=== PATIENT | female | born 1995 | race American Indian/Alaskan Native ===

== ENCOUNTER 2020-09-14 11:07 | Inpatient (IN) | payer OTHER ==
[2020-09-14] MEDS ORDERED: PROMETHAZINE 25 MG RECT SUPP PR PRN (12:24)
[2020-09-14] MEDS ORDERED: DINOPROSTONE 10 MG VAG SUPP VG NR (12:24)
[2020-09-14] MEDS ORDERED: ePHEDrine SULFATE 50 MG/1 ML INJ IV PRN (12:24)
[2020-09-14] MEDS ORDERED: PROMETHAZINE 25 MG TAB PO PRN (12:24)
[2020-09-14] MEDS ORDERED: LIDOCAINE (2%) 20 MG/1 ML VIAL 20 ML MDV INFILTRATI ONE (12:24)
[2020-09-14] MEDS ORDERED: BUTORPHANOL 2 MG/1 ML INJ IV PRN (12:24)
[2020-09-14] MEDS ORDERED: ACETAMINOPHEN 325 MG TAB PO PRN (12:24)
[2020-09-14] MEDS ORDERED: TERBUTALINE 1 MG/1 ML INJ SUB-Q PRN (12:24)
[2020-09-14] MEDS ORDERED: ONDANSETRON 4 MG/2 ML INJ IV PRN (12:30)
--- NOTE | 2020-09-14 12:33 | History and Physical Report ---
History of Present Illness Date of examination: 09/14/20 Date of admission: 09/14/2020 Chief complaint: elevated blood pressures and IUGR twin A with di/di twin gestation History of present illness: 25 yo G1 at 36w5d c/b h/o partial thyroidectomy in teens (nl TFTs), rubella non- immune, Hx trich dx x 2 (most recent positive 08/30/2020), di/di twin gestation, fetus A with IUGR 1%ile (24% discordance) presenting for induction of labor for elevated blood pressures with intermittent headaches and mild edema. Patient reports HAs have since resolved. Denies other current [facility] complaints. BPs 143/100 and 178/107 in clinic. Labs reviewed. Rubella Non-immune. GBS neg Past History Past Medical History: other (Hx persistent HAs since first trimester) Past Surgical History: thyroid (hx thyroidectomy) Family/Genetic History: none Social history: no significant social history - Obstetrical History Expected Date of Delivery: 10/07/20 Actual Gestation: 36 Week(s) 5 Day(s) : 1 Medications and Allergies Allergies Allergy/AdvReac Type Severity Reaction Status Date / Time No Known Allergies Allergy Unverified 10/26/14 21:39 Active Meds: Active Medications Acetaminophen (Acetaminophen 325 Mg Tab) 650 mg PO Q4H PRN PRN Reason: Pain, Mild (1-3) Butorphanol Tartrate (Butorphanol 2 Mg/1 Ml Inj) 1 mg IV Q2H PRN PRN Reason: Pain, Moderate(4-6) LABOR PAIN Butorphanol Tartrate (Butorphanol 2 Mg/1 Ml Inj) 2 mg IV Q2H PRN PRN Reason: Pain , Severe (7-10) Dinoprostone (Dinoprostone 10 Mg Vag Supp) 10 mg VG ONCE ONE Stop: 09/14/20 12:25 Ephedrine Sulfate (Ephedrine Sulfate 50 Mg/1 Ml Inj) 10 mg IV Q2M PRN PRN Reason: Hypotension Oxytocin/Sodium Chloride (Pitocin/Ns 30 Unit/500ml) 30 units in 500 mls @ 2 mls/hr IV TITR EDDY; Protocol Lactated Ringer's (Lactated Ringers) 1,000 mls @ 125 mls/hr IV DIRECT EDDY Oxytocin/Sodium Chloride (Pitocin/Ns 30 Unit/500ml) 30 units in 500 mls @ 40 mls/hr IV TITR EDDY; Protocol Lidocaine (Lidocaine (2%) 20 Mg/1 Ml Vial 20 Ml Mdv) 20 ml INFILTRATI ONCE ONE Stop: 09/14/20 12:25 Mineral Oil (Mineral Oil 30 Ml Oral Liqd) 30 ml PO QHS PRN PRN Reason: Constipation Ondansetron HCl (Ondansetron 4 Mg/2 Ml Inj) 4 mg IV Q8H PRN PRN Reason: Nausea And Vomiting Promethazine HCl (Promethazine 25 Mg Rect Supp) 25 mg IA Q6H PRN PRN Reason: N/V if unable to take po Promethazine HCl (Promethazine 25 Mg Tab) 25 mg PO Q6H PRN PRN Reason: Nausea And Vomiting Terbutaline Sulfate (Terbutaline 1 Mg/1 Ml Inj) 0.25 mg SUB-Q ONCE PRN PRN Reason: Hyperstimulation/Hypertonicity Review of Systems All systems: negative (expect HPI) - Vital Signs Vital signs: Vital Signs Pulse BP 77 165/100 09/14/20 12:14 09/14/20 12:14 Temp Pulse Resp BP Pulse Ox 77 165/100 09/14/20 12:14 09/14/20 12:14 - Physical Exam Abdomen: Positive: normal appearance, normal bowel sounds, other (gravid) Genitourinary (Female): Positive: normal external genitalia - Obstetrical FHR: category 1 Uterine Contraction Monitor Mode: External Cervical Dilatation: 2 Cervical Effacement Percentage: 60 station: -1 Uterine Contraction Pattern: Absent Results All other labs normal. Assessment and Plan - Patient Problems (1) Dichorionic diamniotic twin Current Visit: Yes Status: Acute Plan to address problem: For IOL given cephalic/cephalic presentation. IUGR for twin A, EFW 1%. --Proceed with cervidil for IOL, then pitocin per protocol --Questions solicited and answered --Anticipate , however patient understands risks associated with twin gestation including section of one or both twins as indicated (2) Elevated blood pressure affecting in third trimester, antepartum Current Visit: Yes Status: Acute Plan to address problem: --No hx of BPs issues antepartum. No elevated BPs documented in 35 weeks. --PIH labs ordered --Low threshold for preeclampsia diagnosis (3) Rubella non-immune status, antepartum Current Visit: Yes Status: Acute Plan to address problem: --MMR
[2020-09-14] MEDS ORDERED: OXYTOCIN DRIP 30 UNITS/500 ML BAG IV SCH ×2 (13:00)
[2020-09-14 13:54] LABS: Hematocrit 35.4 % (30.3-42.9); Hemoglobin 12.5 gm/dl (10.1-14.3); Mean Corpuscular HGB Conc 35 % (30-34); Mean Corpuscular Volume 90 fl (79-97); Platelet Count 198 K/mm3 (140-440); Red Blood Count 3.93 M/mm3 (3.65-5.03); Red Cell Distribution Width 14.6 % (13.2-15.2)
[2020-09-14 14:14] LABS: Alanine Aminotransferase 6 units/L (7-56); Albumin 3.2 g/dL (3.9-5); Blood Urea Nitrogen 5 mg/dL (7-17); Calcium 9.3 mg/dL (8.4-10.2); Hemolysis Index 4
[2020-09-14 14:22] LABS: BUN/Creatinine Ratio 10
[2020-09-14] MEDS: LACTATED RINGERS 1,000 ML IV SCH (14:37)
[2020-09-14] MEDS: MAGNESIUM SULFATE 40GM/1000ML 40 GM/1,000 ML BAG IV SCH (15:00)
[2020-09-14] MEDS ORDERED: MAGNESIUM SULFATE 4 GM/100 ML BAG IV ONE (15:00)
[2020-09-14 19:39] LABS: Uric Acid 6.3 mg/dL (3.5-7.6)
[2020-09-14] MEDS ORDERED: MINERAL OIL 30 ML ORAL LIQD PO PRN (22:00)
[2020-09-14] MEDS: BUTORPHANOL 2 MG/1 ML INJ IV PRN (23:29)
[2020-09-15] MEDS ORDERED: hydrALAZINE 20 MG/1 ML INJ IV ONE (00:20)
[2020-09-15] MEDS: BUTORPHANOL 2 MG/1 ML INJ IV PRN ×2 (01:31→03:27)
[2020-09-15] MEDS ORDERED: METOCLOPRAMIDE 10 MG/2 ML INJ IV ONE (04:09)
[2020-09-15] MEDS ORDERED: BICITRA ORAL LIQD 30ML PO ONE (04:09)
[2020-09-15] MEDS ORDERED: FAMOTIDINE 20 MG/2 ML INJ IV ONE (04:09)
[2020-09-15] MEDS ORDERED: LACTATED RINGERS 1,000 ML IV SCH (04:15)
--- NOTE | 2020-09-15 04:17 | Event Note ---
Date: 09/15/20 One of twins noted to have recurrent prolonged FHR decelerations on FHR tracing. Few contractions noted. Cervidil removed. BPs elevated. section called by Dr. Paul. Orders put in and team notified.
--- NOTE | 2020-09-15 04:29 | Anesthesia Day of Surgery ---
Anesthesia Day of Surgery - Day of Surgery Patient Examined: Yes Patient H&P Reviewed: Yes Patient is NPO: Yes Beta Blockers: No Cardiac Clearance: No Pulmonary Clearance: No Jeff's Test: N/A
--- NOTE | 2020-09-15 04:30 | Anesthesia Consultation ---
Anesthesia Consult and Med Hx Date of service: 09/15/20 - Airway Anesthetic Teeth Evaluation: Good ROM Head & Neck: Adequate Mental/Hyoid Distance: Adequate Mallampati Class: Class II Intubation Access Assessment: Probably Good - Pulmonary Exam CTA: Yes - Cardiac Exam Cardiac Exam: RRR - Pre-Operative Health Status ASA Pre-Surgery Classification: ASA2 Proposed Anesthetic Plan: Spinal - Pulmonary Hx Smoking: No Hx Asthma: Yes (Last attack 1 year ago) Hx Sleep Apnea: No - Cardiovascular System Hx Hypertension: Yes (Current ) Hx Heart Attack/AMI: No Hx Angina: No - Central Nervous System Hx Seizures: No Hx Psychiatric Problems: No - Gastrointestinal Hx Gastroesophageal Reflux Disease: No - Endocrine Hx Renal Disease: No Hx Hypothyroidism: No Hx Hyperthyroidism: Yes (Partial Thyroidectomy at 16 y/o) - Hematic Hx Anemia: No Hx Sickle Cell Disease: No - Other Systems Hx Alcohol Use: No
[2020-09-15] MEDS ORDERED: ONDANSETRON 4 MG/2 ML INJ ONE (04:53)
[2020-09-15] MEDS ORDERED: BUPIVACAINE /DEX-WATER 0.75% (2 ML) AMPULE INFILTRATI ONE (04:53)
[2020-09-15] MEDS ORDERED: dexAMETHasone 20 MG/5 ML VIAL ONE (05:00)
[2020-09-15] MEDS ORDERED: BUPIVACAINE/PF (0.5%) 5 MG/1 ML 30 ML VIAL INFILTRATI ONE (05:00)
[2020-09-15] MEDS ORDERED: OXYTOCIN DRIP 30 UNITS/500 ML BAG IV SCH ×2 (05:00→10:14)
[2020-09-15] MEDS ORDERED: ceFAZolin/Water 2 GM/20 ML 2 GM/20 ML SYRINGE IV NR (05:00)
[2020-09-15] MEDS ORDERED: SODIUM CHLORIDE 0.9% IRR 1,500 ML BOTTLE IR ONE (05:38)
[2020-09-15] MEDS ORDERED: WATER FOR IRRIG STERILE 1,500 ML BOTTLE IR ONE (05:38)
[2020-09-15] MEDS ORDERED: ceFAZolin/STERILE WATER 2 GM/20 ML SYRINGE IV ONE (05:38)
--- NOTE | 2020-09-15 06:12 | Progress Note ---
Spinal Anesthesia Block - Spinal Anesthesia Block Start Time: 05:00 Stop Time: 05:15 Performed by:: MANJINDER ELIZABETH Procedure: Spinal anesthesia block is being performed for [C/S]. H&P, labs have been reviewed. Patient's questions and concerns have been answered. Informed consent has been performed. Timeout has was performed. Patient in sitting position on side of bed. Sterile prep and drape was performed. 3 mL 1% lidocaine skin wheal at L [3]-L [4]. Needle introducer advanced. 25-gauge spinal needle advanced, [+] CSF [-] blood. [Marcaine 10.5mg and Precedex 5mcg] Spinal dose was given. All needles removed. Patient tolerated procedure well.
[2020-09-15] MEDS ORDERED: LACTATED RINGERS 1,000 ML ONE (06:42)
--- NOTE | 2020-09-15 07:11 | Procedure Note ---
OB Delivery Note - Delivery Date of Delivery: 09/15/20 Surgeon: CAMILLE DENNIS Estimated blood loss: 300cc - Section Preop diagnosis: nonreassuring FHR tracing, other (IUP at 36.5wks, severe preeclampsia, twin gestation) Postop diagnosis: same section procedure: primary low transverse Disposition: floor Complications: none Narrative: Primary section note Date: September 15, 2020 Surgeon: Camille Dennis MD Asst: Camille Gimenez Preoperative diagnosis: Intrauterine with twin gestation at 36.5 weeks, severe preeclampsia, category 3 heart rate tracing remote from delivery Postoperative diagnosis: same Anesthesia: spinal Intake: 1000 cc crystalloids Output: 400 cc clear urine at the end of the procedure Estimated blood loss: 300 cc Findings: Twin A, vertex presentation, clear amniotic fluid, weight 2200 g, Apgars 8/9. Twin B, vertex presentation, clear amniotic fluid, weight 1801 g, Apgars 8/9. Normal uterus tubes and ovaries placenta appears mono dichorionic and sent to pathology. Pathology: Placenta Procedure: After the risks benefits and alternatives of the procedure, patient was taken to the operating room already lying in labor and delivery bed. Consents obtained and patient already with Vaughn catheter draining clear urine. Patient was given spinal anesthesia and when seen was adequate patient was placed supine. Patient was prepped and draped in usual sterile fashion. Patient was given antibiotic prophylaxis and timeout done. Pfannenstiel skin incision was made and taken sharply to the rectus fascia. The fascia was incised in the midline and taken sharply and extended bilaterally using electrocautery. The lower abdomen was very added edematous. Superior aspect of the rectus fascia was grasped with Gaviota clamps and the rectus muscle both bluntly and also with electrocautery the rectus muscle was then in the midline and the peritoneal cavity entered bluntly with good visualization of the bladder. The Sanchez retractor was then placed within the intra-abdominal cavity and the bladder flap was created using Metzenbaum scissors lower uterine segment was then entered sharply and extended bilaterally by manual separation. The amniotic sac of twin A was then entered and twin A delivered vertex uncomplicated cord clamp and infant handed off to the waiting pediatricians. Attention was turned to twin B which was also in vertex presentation the amniotic sac was entered and clear fluid was also noted. was delivered cord clamped suctioned and handed off to the waiting pediatricians. The placenta was then delivered with the single clamp placed on twin B cord. The uterus was then cleared of clots and debris and the incision was repaired with 2 layers. First layer with 0 Vicryl running locked suture and the second layer for imbrication with the same suture. Excellent hemostasis achieved gutters were cleared of clots and debris and the anterior peritoneum was closed with 3-0 Vicryl in a running locked fashion the rectus muscles then reapproximated with 0 Vicryl in a running fashion the fascia was reapproximated from left side towards the right in a continuous fashion using 0 Vicryl suture copious irrigation was done to subcutaneous tissue and skin was reapproximated with 3-0 Vicryl suture skin was closed with 3-0 Monocryl subcutaneously sponge lap instrument and needle counts were correct x2. Patient was taken to recovery room stable. Dictation done by Dr. Camille Dennis. - A at 1 minute: 8 at 5 minutes: 9 B at 1 minute: 8 at 5 minutes: 9 (Twin A vertex, wt 2200g; Twin B vertex, wt 1801g; clear amniotic fluid in both sacs, normal uterus tubes and ovaries; placenta complete)
--- NOTE | 2020-09-15 07:33 | Progress Note ---
Regional Anesthesia Block - Regional Anesthesia Block Start Time: 19:00 Stop Time: 19:10 Performed By:: JULIO RIVAS Procedure: U/S guided bilateral tap block performed for post-operative pain requested by Dr. Paul. H&P & labs reviewed. Procedure explained, questions answered, consent obtained. Patient in the supine position with ekg, blood pressure cuff and pulse ox on and working in PACU. Timeout performed immediately before start of procedure. Probe placed in the mid-axillary line and the external oblique, internal oblique, and transverse abdominus muscles identified. Skin was cleansed with 0.5% Chlorahexadine and allowed to dry. A 4" 20 G Nino echogenic needle was advanced in plane until the tip was in the fascial plane between the internal oblique and the transverse abdominus. After negative aspiration 35 ml/side of [30 ml 0.5% Bupivacaine], [50 mcg dexmedetomidine], [10 mg dexamethasone], and [40 ml sterile saline] was injected in 5 ml increments with negative aspiration in between. Patient tolerated procedure well. Rich LITTLE
--- NOTE | 2020-09-15 07:34 | Post Anesthesia Evaluation ---
- Post Anesthesia Evaluation Patient Participated: Yes Airway Patent: Yes Stable Respiratory Function: Yes Nausea/Vomiting: No Temp > 96.8F: Yes Pain Manageable: Yes Adequeate Hydration: Yes Anesthesia Complications: No Block Receding Appropriately: Yes
[2020-09-15] MEDS ORDERED: WITCH HAZEL/ GLYCERIN PAD TP PRN (10:14)
[2020-09-15] MEDS ORDERED: NALOXONE 0.4 MG/1 ML INJ IV PRN (10:14)
[2020-09-15] MEDS ORDERED: SIMETHICONE 80 MG CHEW TAB PO PRN (10:14)
[2020-09-15] MEDS ORDERED: ONDANSETRON 4 MG/2 ML INJ IV PRN (10:14)
[2020-09-15] MEDS ORDERED: PROMETHAZINE 25 MG RECT SUPP PR PRN (10:14)
[2020-09-15] MEDS ORDERED: ceFAZolin/NS 1 GM/50 ML 1 GM/50 ML BAG IV SCH (10:14)
[2020-09-15] MEDS ORDERED: oxyCODONE /ACETAMINOPHEN 5-325MG TAB PO PRN (10:14)
[2020-09-15] MEDS ORDERED: MAGNESIUM HYDROXIDE (MOM) ORAL LIQD UDC PO PRN (10:14)
[2020-09-15] MEDS ORDERED: LANOLIN/ZINC/DIMETHICONE (LANSINOH) 7 GM TP PRN (10:14)
[2020-09-15] MEDS: MORPHINE 2 MG/1 ML INJ IV PRN ×3 (10:34→21:38)
[2020-09-15] MEDS: hydrALAZINE 20 MG/1 ML INJ IV PRN ×3 (11:46→18:14)
[2020-09-15] MEDS: MAGNESIUM SULFATE 40GM/1000ML 40 GM/1,000 ML BAG IV SCH (11:51)
[2020-09-15] MEDS: oxyCODONE /ACETAMINOPHEN 5-325MG TAB PO PRN (18:00)
[2020-09-15] MEDS: LACTATED RINGERS 1,000 ML IV SCH (18:07)
[2020-09-15 19:14] LABS: Basophils % (Auto) 0.1 % (0.0-1.8); Hematocrit 39.7 % (30.3-42.9); Hemoglobin 13.4 gm/dl (10.1-14.3); Lymphocytes # (Auto) 1.5 K/mm3 (1.2-5.4); Lymphocytes % (Auto) 7.5 % (13.4-35.0); Mean Corpuscular HGB Conc 34 % (30-34); Mean Corpuscular Volume 91 fl (79-97); Monocytes # (Auto) 0.5 K/mm3 (0.0-0.8); Monocytes % (Auto) 2.6 % (0.0-7.3); Platelet Count 201 K/mm3 (140-440); Red Blood Count 4.34 M/mm3 (3.65-5.03); Red Cell Distribution Width 15.3 % (13.2-15.2)
[2020-09-15 19:27] LABS: Alanine Aminotransferase 8 units/L (7-56); Albumin 3.1 g/dL (3.9-5); Blood Urea Nitrogen 5 mg/dL (7-17); Calcium 8.1 mg/dL (8.4-10.2); Hemolysis Index 2
[2020-09-15 19:28] LABS: Uric Acid 7.5 mg/dL (3.5-7.6)
[2020-09-15 19:34] LABS: BUN/Creatinine Ratio 8
[2020-09-16] MEDS ORDERED: ceFAZolin/NS 1 GM/50 ML 1 GM/50 ML BAG IV SCH
[2020-09-16] MEDS: MORPHINE 2 MG/1 ML INJ IV PRN (05:27)
[2020-09-16] MEDS: LACTATED RINGERS 1,000 ML IV SCH (07:16)
--- NOTE | 2020-09-16 08:18 | Progress Note ---
Assessment and Plan A: /postop day 1 S/P primary LTCS for twins, severe PreE, and nonreassuring FHR tracing. Preeclampsia with severe features, S/P magnesium sulfate. BPs labile, on Labetalol, just added Norvasc. P: Monitor BPs. Urinalysis (not collected last PM), urine culture. Advance diet as tolerated. Consulted with re: this patient. Subjective - Subjective Date of service: 09/16/20 Principal diagnosis: /postop day 1 S/P primary LTCS Interval history: /postop day 1 S/P primary LTCS (twins, severe preeclampsia, nonreassuring FHR tracing). BPs labile. On Labetalol 300 mg po BID; just added Norvasc 5 mg po daily per MD recommendation. Patient denies headache, visual disturbance, nausea or vomiting, epigastric pain. Has mild generalized edema. Magnesium sulfate was just discontinued this AM due to > 24 hours post delivery. Patient reports: appetite normal, pain well controlled, bowel movement, no nauseated : doing well Objective - Vital Signs Latest vital signs: Vital Signs Temp Pulse Resp BP BP Pulse Ox 09/16/20 08:07 85 98 09/16/20 08:02 80 98 09/16/20 07:53 80 99 09/16/20 07:48 79 98 09/16/20 07:43 82 98 09/16/20 07:42 80 156/99 09/16/20 07:38 78 97 09/16/20 07:36 98.8 F 80 18 156/99 98 09/16/20 07:33 80 97 09/16/20 07:29 74 168/103 93 09/16/20 07:28 79 97 09/16/20 07:23 77 96 09/16/20 07:18 79 97 09/16/20 07:13 82 97 09/16/20 07:08 77 96 09/16/20 07:03 76 98 09/16/20 06:59 74 163/98 09/16/20 06:58 82 98 09/16/20 06:53 80 97 09/16/20 06:48 77 96 09/16/20 06:43 78 96 09/16/20 06:38 75 146/91 96 09/16/20 06:33 82 96 09/16/20 06:29 80 163/108 12/20/20 06:28 81 98 12/20/20 06:23 77 98 12/20/20 06:18 79 96 12/20/20 06:13 78 98 12/20/20 06:08 79 98 12/20/20 06:03 79 97 12/20/20 05:59 80 139/94 93 12/20/20 05:58 84 97 12/20/20 05:53 86 98 12/20/20 05:48 79 98 12/20/20 05:45 98.1 F 12/20/20 05:43 75 98 12/20/20 05:38 87 98 12/20/20 05:33 82 139/87 99 12/20/20 05:29 82 153/95 94 12/20/20 05:28 83 98 12/20/20 05:23 77 98 12/20/20 05:18 83 97 12/20/20 05:13 80 95 12/20/20 05:10 84 94 12/20/20 05:08 81 95 12/20/20 05:03 81 96 12/20/20 04:59 83 120/75 92 12/20/20 04:58 81 95 12/20/20 04:53 80 95 12/20/20 04:48 79 96 12/20/20 04:44 81 94 12/20/20 04:43 82 95 12/20/20 04:38 79 96 12/20/20 04:35 88 94 12/20/20 04:33 78 95 12/20/20 04:29 77 129/76 92 12/20/20 04:28 79 95 12/20/20 04:23 81 96 12/20/20 04:18 81 95 12/20/20 04:16 79 94 12/20/20 04:13 81 96 12/20/20 04:08 93 H 94 12/20/20 04:04 83 94 12/20/20 04:03 84 95 12/20/20 03:59 79 125/74 94 12/20/20 03:58 81 95 12/20/20 03:53 82 95 12/20/20 03:48 83 95 12/20/20 03:43 81 96 12/20/20 03:38 77 98 12/20/20 03:33 76 96 12/20/20 03:29 77 134/84 91 12/20/20 03:28 81 96 12/20/20 03:23 79 95 12/20/20 03:21 81 94 12/20/20 03:18 80 95 12/20/20 03:16 83 94 12/20/20 03:13 82 95 12/20/20 03:08 83 95 12/20/20 03:07 84 94 12/20/20 03:03 80 96 12/20/20 02:59 76 139/85 93 12/20/20 02:58 81 97 12/20/20 02:53 79 96 12/20/20 02:48 83 95 12/20/20 02:47 83 94 12/20/20 02:43 81 96 12/20/20 02:38 83 94 12/20/20 02:37 83 94 12/20/20 02:33 84 95 12/20/20 02:29 81 144/83 92 12/20/20 02:28 85 96 12/20/20 02:23 87 96 12/20/20 02:18 79 96 12/20/20 02:13 85 95 12/20/20 02:10 84 94 12/20/20 02:08 84 95 12/20/20 02:03 79 97 12/20/20 01:59 78 126/77 12/20/20 01:58 88 95 12/20/20 01:56 84 94 12/20/20 01:53 84 95 12/20/20 01:48 82 96 12/20/20 01:43 85 95 12/20/20 01:38 84 95 12/20/20 01:33 83 96 12/20/20 01:29 83 144/88 92 12/20/20 01:28 84 97 12/20/20 01:23 84 97 12/20/20 01:18 91 H 95 12/20/20 01:13 83 96 12/20/20 01:08 89 97 12/20/20 01:03 85 96 12/20/20 00:59 83 133/81 91 12/20/20 00:58 85 96 12/20/20 00:53 84 97 12/20/20 00:48 85 96 12/20/20 00:43 85 96 12/20/20 00:38 83 96 12/20/20 00:33 83 96 12/20/20 00:29 81 139/85 89 12/20/20 00:28 82 96 12/20/20 00:23 83 96 12/20/20 00:18 86 95 12/20/20 00:15 86 94 12/20/20 00:13 88 95 12/20/20 00:08 84 96 12/20/20 00:05 86 94 12/20/20 00:03 84 95 12/19/20 23:59 83 122/75 91 12/19/20 23:58 88 95 12/19/20 23:53 82 96 12/19/20 23:48 82 96 12/19/20 23:43 82 95 12/19/20 23:41 97.8 F 12/19/20 23:38 84 96 12/19/20 23:33 85 95 12/19/20 23:29 84 136/90 91 12/19/20 23:28 84 97 12/19/20 23:23 87 97 12/19/20 23:18 87 97 1219/20 23:13 91 H 97 1219/20 23:08 87 97 12/19/20 23:03 83 96 12/19/20 22:59 81 139/85 89 12/19/20 22:58 83 97 12/19/20 22:53 84 96 12/19/20 22:48 84 97 12/19/20 22:43 85 97 12/19/20 22:39 87 145/88 91 12/19/20 22:38 85 97 12/19/20 22:33 86 98 12/19/20 22:29 83 159/91 93 12/19/20 22:28 81 97 12/19/20 22:23 83 97 12/19/20 22:18 86 96 12/19/20 22:13 86 98 12/19/20 22:08 92 H 96 12/19/20 22:03 89 97 12/19/20 21:59 86 169/101 94 12/19/20 21:58 87 97 12/19/20 21:53 82 97 12/19/20 21:48 92 H 96 12/19/20 21:43 86 97 12/19/20 21:38 87 98 12/19/20 21:33 88 98 12/19/20 21:29 88 135/91 12/19/20 21:28 89 97 12/19/20 21:23 89 97 12/19/20 21:18 88 98 12/19/20 21:13 88 98 12/19/20 21:08 92 H 98 12/19/20 21:03 83 98 12/19/20 20:59 86 145/91 89 12/19/20 20:58 89 97 12/19/20 20:53 82 98 12/19/20 20:48 91 H 97 12/19/20 20:43 90 97 12/19/20 20:38 89 97 12/19/20 20:33 83 96 12/19/20 20:29 89 134/82 91 12/19/20 20:28 85 97 12/19/20 20:23 86 96 12/19/20 20:18 89 97 12/19/20 20:13 88 95 12/19/20 20:08 84 96 12/19/20 20:03 91 H 97 12/19/20 19:59 85 137/92 92 12/19/20 19:58 84 97 12/19/20 19:53 85 97 12/19/20 19:48 85 96 12/19/20 19:43 88 97 12/19/20 19:38 94 H 97 12/19/20 19:33 88 96 12/19/20 19:29 88 126/79 94 12/19/20 19:28 85 96 12/19/20 19:23 90 97 12/19/20 19:18 89 97 12/19/20 19:13 92 H 95 12/19/20 19:12 98.1 F 93 H 17 134/81 134/81 95 12/19/20 19:08 97 H 96 12/19/20 19:06 97 H 94 12/19/20 19:03 94 H 95 12/19/20 18:59 96 H 143/95 12/19/20 18:58 97 H 94 12/19/20 18:53 94 H 97 12/19/20 18:48 93 H 97 12/19/20 18:43 92 H 95 12/19/20 18:38 102 H 95 12/19/20 18:37 102 H 94 12/19/20 18:33 102 H 93 12/19/20 18:31 95 H 141/94 12/19/20 18:29 99 H 154/101 94 12/19/20 18:28 92 H 95 1219/20 18:24 95 H 173/106 1219/20 18:23 93 H 93 19/20 18:18 87 93 19/20 18:17 86 94 19/20 18:14 179/110 1219/20 18:13 91 H 93 19/20 18:08 88 95 19/20 18:07 88 94 19/20 18:03 83 94 19/20 17:59 91 H 179/110 85 19/20 17:58 90 96 19/20 17:53 95 H 95 19/20 17:51 83 92 19/20 17:48 86 97 19/20 17:43 95 H 95 19/20 17:38 92 H 158/95 93 19/20 17:33 91 H 96 19/20 17:29 85 164/104 84 19/20 17:28 88 95 19/20 17:23 88 96 19/20 17:20 91 H 92 19/20 17:18 94 H 93 19/20 17:13 90 95 19/20 17:12 86 94 19/20 17:08 89 95 19/20 17:06 90 94 19/20 17:03 88 98 19/20 16:59 98.4 F 83 14 140/95 1219/20 16:58 83 140/95 95 19/20 16:53 86 96 19/20 16:52 89 94 1219/20 16:48 90 96 1219/20 16:43 95 H 94 1219/20 16:38 88 95 1219/20 16:35 91 H 94 1219/20 16:33 88 96 1219/20 16:29 91 H 141/97 89 1219/20 16:28 90 99 1219/20 16:23 88 97 1219/20 16:19 94 H 94 19/20 16:18 90 95 19/20 16:13 92 H 97 19/20 16:08 90 98 19/20 16:03 92 H 95 19/20 15:59 96 H 132/78 1219/20 15:58 93 H 95 19/20 15:55 95 H 94 1219/20 15:53 93 H 96 19/20 15:48 76 96 19/20 15:43 92 H 95 19/20 15:40 90 94 1219/20 15:38 89 96 19/20 15:33 92 H 96 1219/20 15:29 89 154/101 1219/20 15:28 93 H 95 19/20 15:23 93 H 96 19/20 15:19 92 H 94 19/20 15:18 95 H 93 09/15/20 15:13 96 H 93 09/15/20 15:12 95 H 94 09/15/20 15:08 93 H 95 09/15/20 15:03 92 H 97 09/15/20 14:59 92 H 135/93 91 09/15/20 14:58 94 H 96 09/15/20 14:53 93 H 95 09/15/20 14:48 95 H 96 19/20 14:45 97 H 94 09/15/20 14:43 95 H 95 19/20 14:39 99 H 94 09/15/20 14:38 98 H 94 09/15/20 14:34 94 H 93 09/15/20 14:33 94 H 95 09/15/20 14:29 91 H 136/85 19/20 14:28 92 H 95 09/15/20 14:26 94 H 94 09/15/20 14:23 95 H 95 09/15/20 14:18 94 H 96 19/20 14:13 91 H 95 19/20 14:09 94 H 94 19/20 14:08 92 H 95 09/15/20 14:03 92 H 96 19/20 13:59 86 139/86 92 1219/20 13:58 89 96 1219/20 13:53 88 97 1219/20 13:49 165/100 1219/20 13:48 82 96 1219/20 13:43 81 96 1219/20 13:38 83 97 1219/20 13:33 85 97 1219/20 13:29 89 165/100 88 12/19/20 13:28 92 H 95 12/19/20 13:23 89 96 12/19/20 13:18 83 98 12/19/20 13:13 82 97 12/19/20 13:08 88 98 12/19/20 13:03 94 H 99 1219/20 12:59 86 147/91 93 12/19/20 12:58 89 95 1219/20 12:53 89 95 1219/20 12:48 88 96 1219/20 12:43 90 95 1219/20 12:38 85 96 1219/20 12:33 86 96 1219/20 12:29 90 137/91 1219/20 12:28 90 100 1219/20 12:23 84 97 1219/20 12:18 101 H 97 1219/20 12:13 84 99 12/20 12:08 99 H 98 1219/20 12:03 89 97 1219/20 11:59 90 135/91 92 1219/20 11:58 89 96 12/19/20 11:53 87 96 12/19/20 11:48 89 95 12/19/20 11:46 181/103 12/19/20 11:43 86 96 12/19/20 11:38 81 95 12/19/20 11:33 77 95 12/19/20 11:29 75 181/103 93 12/19/20 11:28 77 97 12/19/20 11:23 90 97 12/19/20 11:22 80 93 12/19/20 11:18 76 97 12/19/20 11:13 85 98 12/19/20 11:08 77 96 12/19/20 11:03 78 95 12/19/20 10:59 75 171/103 91 12/19/20 10:58 76 96 12/19/20 10:53 88 98 12/19/20 10:48 79 95 12/19/20 10:43 73 96 12/19/20 10:38 82 97 12/19/20 10:33 74 179/91 97 12/19/20 10:30 77 217/97 12/19/20 10:29 85 94 12/19/20 10:28 78 99 12/19/20 10:23 76 98 12/19/20 10:18 79 98 09/15/20 10:13 85 98 09/15/20 10:08 85 95 09/15/20 10:03 82 95 09/15/20 10:02 85 94 09/15/20 09:58 78 95 09/15/20 09:56 83 94 09/15/20 09:53 82 94 09/15/20 09:50 87 94 09/15/20 09:48 87 150/88 93 09/15/20 09:45 83 94 09/15/20 09:43 80 95 09/15/20 09:38 83 95 09/15/20 09:36 85 94 09/15/20 09:33 81 156/89 95 09/15/20 09:28 79 94 09/15/20 09:23 87 94 09/15/20 09:20 81 94 09/15/20 09:18 79 174/99 95 09/15/20 09:15 80 94 09/15/20 09:13 85 94 09/15/20 09:09 79 94 09/15/20 09:08 84 95 09/15/20 09:04 82 94 09/15/20 09:03 81 179/101 94 09/15/20 08:58 86 95 09/15/20 08:57 82 94 09/15/20 08:53 81 95 09/15/20 08:48 78 204/115 97 09/15/20 08:43 86 98 09/15/20 08:41 91 H 92 09/15/20 08:38 81 97 09/15/20 08:33 83 168/104 95 09/15/20 08:28 88 97 09/15/20 08:23 87 97 09/15/20 08:19 84 94 09/15/20 08:18 83 192/119 98 Intake and Output 09/15/2009/16/09/16/20 23:59 07:59 15:59 Intake Total 986.25 Output Total 1924 625 Balance -1924 361.25 Intake: IV 986.25 Lactated Ringers 1,000 ml 986.25 @ 125 mls/hr IV DIRECT EDDY Rx#:[id number] Output: Urine 1924 625 Indwelling Catheter 1924 625 Other: Total, Output Amount 250 350 - Exam Cardiovascular: Present: Regular rate Lungs: Present: Clear to auscultation Abdomen: Present: normal appearance, soft, normal bowel sounds. Absent: distention, tenderness, guarding Uterus: Present: normal, firm, fundal height below umbilicus. Absent: bogginess, tenderness Extremities: Present: edema. Absent: tenderness Incision: Present: normal, dry, dressed - Labs Labs: Abnormal lab results 09/15/20 09/15/20 09/15/20 Range/Units 09:05 16:34 18:27 WBC 19.4 H (4.5-11.0) K/mm3 RDW 15.3 H (13.2-15.2) % Lymph % (Auto) 7.5 L (13.4-35.0) % Seg Neutrophils % 89.8 H (40.0-70.0) % Seg Neutrophils # 17.4 H (1.8-7.7) K/mm3 Sodium (137-145) mmol/L BUN (7-17) mg/dL Glucose (65-100) mg/dL Calcium (8.4-10.2) mg/dL Magnesium 5.30 H 6.50 H (1.7-2.3) mg/dL Lactate Dehydrogenase (91-180) units/L Albumin (3.9-5) g/dL 09/15/20 09/15/20 09/15/20 Range/Units 18:27 18:27 23:09 WBC (4.5-11.0) K/mm3 RDW (13.2-15.2) % Lymph % (Auto) (13.4-35.0) % Seg Neutrophils % (40.0-70.0) % Seg Neutrophils # (1.8-7.7) K/mm3 Sodium 136 L (137-145) mmol/L BUN 5 L (7-17) mg/dL Glucose 135 H (65-100) mg/dL Calcium 8.1 L (8.4-10.2) mg/dL Magnesium 6.60 H (1.7-2.3) mg/dL Lactate Dehydrogenase 338 H (91-180) units/L Albumin 3.1 L (3.9-5) g/dL
[2020-09-16] MEDS: amLODIPine 5 MG TAB PO SCH ×2 (08:56→13:45)
[2020-09-16] MEDS: oxyCODONE /ACETAMINOPHEN 5-325MG TAB PO PRN ×2 (09:19→18:01)
[2020-09-16 09:29] LABS: Hematocrit 37.1 % (30.3-42.9); Hemoglobin 12.3 gm/dl (10.1-14.3)
--- NOTE | 2020-09-16 09:51 | Event Note ---
Date: 09/16/20 Hospitalist medical consult ordered for uncontrolled BPs on Labetalol and Norvasc.
[2020-09-16] MEDS: PRENATAL VIT27-FE FUMARATE-FOLIC ACID VIT TAB PO SCH (10:05)
[2020-09-16] MEDS: FERROUS SULFATE 325 MG TAB PO SCH (10:05)
--- NOTE | 2020-09-16 11:42 | History and Physical Report ---
History of Present Illness Date of examination: 09/16/20 Date of admission: 09/14/20 12:24 Chief complaint: Elevated blood pressure. History of present illness: Patient 25 years old 36 weeks 5 days with history of partial thyroidectomy presents after induction with hypertension. Patient's blood pressure was high as 170/106. Patient has been essentially asymptomatic except for some lower extremity edema. Patient stated blood pressure began after visit to her BACK TENDER in which she noticed it was high patient was brought here for labor induction. Blood pressure was found to have systolic in the 170s. Patient denies any headache denies chest pain no shortness of breath no dyspnea on exertion patient denies orthopnea denies PND. Has done well. Patient was currently placed on labetalol with as needed hydralazine and amlodipine and actually has gotten fairly good response from above medications. Current blood pressure 138/70. Patient explained the risk of preeclampsia. No evidence of this at this particular time on physical or laboratory values. Patient denies headache denies fever chills no sick contacts. Past History Past Medical History: denies: atrial fib, anemia, ESRD, GERD, liver disease, migraines, pulmonary embolism, seizures Past Surgical History: No surgical history Social history: no significant social history. denies: smoking Family history: hypertension (Mother has hypertension) Medications and Allergies Allergies Allergy/AdvReac Type Severity Reaction Status Date / Time No Known Allergies Allergy Unverified 10/26/14 21:39 Home Medications Medication Instructions Recorded Confirmed Last Taken Type Vitamin 1 tab PO DAILY 09/14/20 09/14/20 09/14/20 History oxyCODONE /ACETAMINOPHEN [Percocet 1 tab PO Q6H PRN #30 tablet 09/15/20 Unknown Rx 5/325 mg] Active Meds: Active Medications Amlodipine Besylate (Amlodipine 5 Mg Tab) 5 mg PO QDAY [facility] Last Admin: 09/16/20 08:56 Dose: 5 mg Documented by: Amoxicillin/Clavulanate Potassium (Amoxicillin/K Clav 875/125mg Tab) 1 each PO Q12HR [facility]; Protocol Stop: 09/22/20 23:59 Ferrous Sulfate (Ferrous Sulfate 325 Mg Tab) 325 mg PO QDAY [facility] Last Admin: 09/16/20 10:05 Dose: 325 mg Documented by: Hydralazine HCl (Hydralazine 20 Mg/1 Ml Inj) 5 mg IV Q30MIN PRN PRN Reason: Hypertension Last Admin: 09/15/20 18:14 Dose: 5 mg Documented by: Oxytocin/Sodium Chloride (Pitocin/Ns 30 Unit/500ml) 30 units in 500 mls @ 2 mls/hr IV TITR EDDY; Protocol Lactated Ringer's (Lactated Ringers) 1,000 mls @ 125 mls/hr IV DIRECT EDDY Last Admin: 09/16/20 07:16 Dose: 75 mls/hr Documented by: Oxytocin/Sodium Chloride (Pitocin/Ns 30 Unit/500ml) 30 units in 500 mls @ 40 mls/hr IV TITR EDDY; Protocol Oxytocin/Sodium Chloride (Pitocin/Ns 30 Unit/500ml) 30 units in 500 mls @ 0 mls/hr IV TITR EDDY; Protocol Oxytocin/Sodium Chloride (Pitocin/Ns 30 Unit/500ml) 30 units in 500 mls @ 40 mls/hr IV TITR EDDY; Protocol Ibuprofen (Ibuprofen 800 Mg Tab) 800 mg PO Q6H PRN PRN Reason: Pain, Mild (1-3) Labetalol HCl (Labetalol 100 Mg Tab) 300 mg PO BID [facility] Last Admin: 09/16/20 10:04 Dose: 300 mg Documented by: Magnesium Hydroxide (Magnesium Hydroxide (Mom) Oral Liqd Udc) 30 ml PO QHS PRN PRN Reason: Constip Unrelieved By Senna Morphine Sulfate (Morphine 2 Mg/1 Ml Inj) 2 mg IV Q3H PRN PRN Reason: Pain, Moderate (4-6) Last Admin: 09/16/20 05:27 Dose: 2 mg Documented by: Multi-Ingredient Ointment (Lanolin/Zinc/Dimethicone (Lansinoh) 7 Gm) 1 applic TP PRN PRN PRN Reason: dryness/cracking Multivitamins/Iron/Calcium ( [id number] Fumarate-Folic Acid Vit Tab) 1 each PO QDAY [facility] Last Admin: 09/16/20 10:05 Dose: 1 each Documented by: Naloxone HCl (Naloxone 0.4 Mg/1 Ml Inj) 0.1 mg IV Q2MIN PRN PRN Reason: Res Rate </= 8 or 02 SAT < 92% Ondansetron HCl (Ondansetron 4 Mg/2 Ml Inj) 4 mg IV Q8H PRN PRN Reason: Nausea And Vomiting Ondansetron HCl (Ondansetron 4 Mg/2 Ml Inj) 4 mg IV Q8H PRN PRN Reason: Nausea And Vomiting Oxycodone/Acetaminophen (Oxycodone /Acetaminophen 5-325mg Tab) 2 tab PO Q6H PRN PRN Reason: Pain, Moderate (4-6) Last Admin: 09/16/20 09:19 Dose: 2 tab Documented by: Simethicone (Simethicone 80 Mg Chew Tab) 80 mg PO Q6H PRN PRN Reason: Gas pain Sodium Chloride (Sodium Chloride 0.9% 10 Ml Flush Syringe) 10 ml IV PRN NR Stop: 09/22/20 10:13 Witch Deborah/Glycerin (Witch Deborah/ Glycerin Pad) 1 each TP PRN PRN PRN Reason: Hemorrhoids/cleansing/soothing Review of Systems Constitutional: no weight loss, no weight gain, no fever, no anorexia, no fatigue, no poor appetite, no daytime sleepiness, no chronic pain Ears, nose, mouth and throat: no decreased hearing, no nasal discharge, no mouth pain, no dysphagia Cardiovascular: no orthopnea, no syncope, no claudication, no phlebitis Respiratory: no excessive sputum Gastrointestinal: no nausea, no change in bowel habits, no hematemesis, no dyspepsia/bloating, no early satiety Genitourinary Female: no urinary frequency, no stress incontinence Menstruation: premenarcheal, ammenorrhea, period heavy Musculoskeletal: no neck pain, no arm numbness/tingling, no shooting leg pain, no muscle weakness, no muscle cramps, no frequent falls, no arthritis Integumentary: no rash, no darkening of skin, no depigmentation, no foot/leg ulcers Neurological: no paralysis, no parathesias, no convulsions, no aphasia, no double vision, no loss of vision Psychiatric: no hypersomnia, no disorientation Endocrine: no polyphagia, no polydipsia, no nocturia, no deepening of the voice, no high blood sugars, no recent glucocorticoid use Hematologic/Lymphatic: no other Allergic/Immunologic: no allergic rhinitis, no angioedema, no gluten intolerance, no seasonal allergies Exam - Constitutional Vitals: Temp Pulse Resp BP Pulse Ox 98.8 F 81 18 127/82 97 09/16/20 07:36 09/16/20 11:32 09/16/20 07:36 09/16/20 11:06 09/16/20 11:32 General appearance: Present: no acute distress, well-nourished - EENT Eyes: Present: PERRL ENT: hearing intact, clear oral mucosa - Neck Neck: Present: supple, normal ROM - Respiratory Respiratory effort: normal Respiratory: bilateral: CTA - Cardiovascular Heart Sounds: Present: S1 & S2. Absent: rub, click - Extremities Extremities: pulses symmetrical, No edema Extremity abnormal: edema (Consistent with edema) Peripheral Pulses: within normal limits - Abdominal General gastrointestinal: Present: soft, non-tender, non-distended, normal bowel sounds, other (Consistent with .) Female genitourinary: Present: normal - Integumentary Integumentary: Present: clear, warm, dry - Musculoskeletal Musculoskeletal: gait normal, strength equal bilaterally - Psychiatric Psychiatric: appropriate mood/affect, intact judgment & insight - Neurologic Neurologic: CNII-XII intact, moves all extremities Results - Labs CBC & Chem 7: 09/16/20 08:17 09/15/20 18:27 Labs: Abnormal lab results 09/15/20 09/15/20 09/15/20 Range/Units 16:34 18:27 18:27 WBC 19.4 H (4.5-11.0) K/mm3 RDW 15.3 H (13.2-15.2) % Lymph % (Auto) 7.5 L (13.4-35.0) % Seg Neutrophils % 89.8 H (40.0-70.0) % Seg Neutrophils # 17.4 H (1.8-7.7) K/mm3 Sodium 136 L (137-145) mmol/L BUN 5 L (7-17) mg/dL Glucose 135 H (65-100) mg/dL Calcium 8.1 L (8.4-10.2) mg/dL Magnesium 6.50 H (1.7-2.3) mg/dL Lactate Dehydrogenase (91-180) units/L Albumin 3.1 L (3.9-5) g/dL 09/15/20 09/15/20 Range/Units 18:27 23:09 WBC (4.5-11.0) K/mm3 RDW (13.2-15.2) % Lymph % (Auto) (13.4-35.0) % Seg Neutrophils % (40.0-70.0) % Seg Neutrophils # (1.8-7.7) K/mm3 Sodium (137-145) mmol/L BUN (7-17) mg/dL Glucose (65-100) mg/dL Calcium (8.4-10.2) mg/dL Magnesium 6.60 H (1.7-2.3) mg/dL Lactate Dehydrogenase 338 H (91-180) units/L Albumin (3.9-5) g/dL Assessment and Plan - Patient Problems (1) Dichorionic diamniotic twin Current Visit: Yes Status: Acute Plan to address problem: induction as ordered by BACK TENDER. Doing well. (2) Elevated blood pressure affecting in third trimester, antepartum Current Visit: Yes Status: Acute Plan to address problem: Patient elevated blood pressure actually current regime fairly well controlled on labetalol 300 mg twice daily and amlodipine 5 mg daily with as needed hydralazine. We will continue present dosing. Discussed with nurse certified midwife. Patient current blood pressure 130/78 we will not adjust medications at this time. Patient does not fact have significant space to titrate up on both medications. For now we will leave just the same reevaluate in a.m. Patient denies any chest pain. Patient not have any evidence of preeclampsia. Very low risk. Normal renal function normal kidney function platelets are normal and unremarkable urine protein. Patient also does not have significant edema so highly unlikely patient to develop preeclampsia. Patient has been educated on h igh risk of developing hypertension later in life.
[2020-09-16] MEDS: AMOXICILLIN/K CLAV 875/125MG TAB PO SCH (12:17)
[2020-09-16 12:32] LABS: Bilirubin,Urine NEG (Negative); Blood,Urine NEG (Negative); Color,Urine Straw (Yellow); Hyaline Casts,Urine 2 /LPF; Mucus,Urine FEW /HPF; Protein,Urine <15 mg/dL mg/dL (Negative); RBC,Urine < 1.0 /HPF (0.0-6.0); Urobilinogen,Urine < 2.0 mg/dL (<2.0); WBC,Urine < 1.0 /HPF (0.0-6.0)
[2020-09-16] MEDS: IBUPROFEN 800 MG TAB PO PRN ×2 (13:18→23:16)
[2020-09-17] MEDS ORDERED: DIPHtheria,PERTUSSIS(ACELL),TETANUS VACCINE/PF 0.5 ML VIAL IM ONE (06:00)
[2020-09-17 06:52] LABS: Basophils # (Auto) 0.1 K/mm3 (0.0-0.1); Basophils % (Auto) 0.8 % (0.0-1.8); Eosinophils # (Auto) 0.2 K/mm3 (0.0-0.4); Eosinophils % (Auto) 1.4 % (0.0-4.3); Hematocrit 32.2 % (30.3-42.9); Hemoglobin 11.2 gm/dl (10.1-14.3); Lymphocytes # (Auto) 3.7 K/mm3 (1.2-5.4); Lymphocytes % (Auto) 29.4 % (13.4-35.0); Mean Corpuscular HGB Conc 35 % (30-34); Mean Corpuscular Volume 92 fl (79-97); Monocytes # (Auto) 0.9 K/mm3 (0.0-0.8); Monocytes % (Auto) 7.1 % (0.0-7.3); Platelet Count 204 K/mm3 (140-440); Red Blood Count 3.51 M/mm3 (3.65-5.03)
[2020-09-17] MEDS: oxyCODONE /ACETAMINOPHEN 5-325MG TAB PO PRN ×2 (07:19→18:31)
[2020-09-17] MEDS: amLODIPine 5 MG TAB PO SCH (09:31)
[2020-09-17] MEDS: FERROUS SULFATE 325 MG TAB PO SCH (09:32)
[2020-09-17] MEDS: IBUPROFEN 800 MG TAB PO PRN ×2 (11:23→21:44)
--- NOTE | 2020-09-17 13:40 | Progress Note ---
Assessment and Plan A: POD # 2 Preeclampsia P: Follow Routine PostOP Orders Continue Labetolol 300mg BID/Amlodipie 5mg PO daily s/p Internal Medicine Consult Subjective - Subjective Date of service: 09/17/20 Principal diagnosis: /postop day 1 S/P primary LTCS Patient reports: appetite normal, voiding normally, pain well controlled, flatus, bowel movement, ambulating normally, other (Denies all s/s of PIH) [place]: doing well, in NICU (One twin in NICU; One twin in the ROOM), bottle feeding Objective - Vital Signs Latest vital signs: Vital Signs Temp Pulse Resp BP BP Pulse Ox 09/17/20 12:02 99.3 F 82 20 138/81 96 09/17/20 09:33 79 126/87 09/17/20 09:31 79 126/87 09/17/20 08:18 98.3 F 79 20 126/87 96 09/17/20 04:35 74 20 118/69 98 09/17/20 00:35 98.3 F 83 20 119/65 95 09/16/20 23:33 84 124/77 09/16/20 23:16 16 09/16/20 20:55 78 20 114/80 97 09/16/20 15:55 98.4 F 88 20 128/90 09/16/20 13:41 98.1 F 97 H 20 126/83 96 Intake and Output 09/16/20 09/17/20 09/17/20 22:59 06:59 14:59 Intake Total 680 600 240 Balance 680 600 240 Intake: Oral 680 600 240 Other: Total, Intake Amount 120 240 240 # Voids Void 1 1 1 - Exam Breasts: Present: normal Cardiovascular: Present: Regular rate Lungs: Present: Clear to auscultation, Normal air movement Abdomen: Present: normal appearance, soft, normal bowel sounds Uterus: Present: normal, firm, fundal height below umbilicus Extremities: Present: normal Incision: Present: normal, dry, intact - Labs Labs: Abnormal lab results 09/17/20 Range/Units 06:41 WBC 12.7 H (4.5-11.0) K/mm3 RBC 3.51 L (3.65-5.03) M/mm3 MCHC 35 H (30-34) % [place] # (Auto) 0.9 H (0.0-0.8) K/mm3 Seg Neutrophils # 7.8 H (1.8-7.7) K/mm3
[2020-09-17] MEDS: AMOXICILLIN/K CLAV 875/125MG TAB PO SCH ×2 (14:25→22:35)
--- NOTE | 2020-09-17 18:24 | Progress Note ---
Assessment and Plan - Patient Problems (1) Dichorionic diamniotic twin Current Visit: Yes Status: Acute Plan to address problem: induction as ordered by CASE MAKER. Doing well. (2) Elevated blood pressure affecting in third trimester, antepartum Current Visit: Yes Status: Acute Plan to address problem: Continues to have optimal control with current management including amlodipine and labetalol. Will not change medications continue present medical management follow-up outpatient in primary care physician. Subjective Date of service: 09/17/20 Principal diagnosis: /postop day 1 S/P primary LTCS Interval history: Patient 25 years old 36 weeks 5 days with history of partial thyroidectomy presents after induction with hypertension. Patient's blood pressure was high as 170/106. Patient has been essentially asymptomatic except for some lower extremity edema. Patient stated blood pressure began after visit to her CASE MAKER in which she noticed it was high patient was brought here for labor induction. Blood pressure was found to have systolic in the 170s. Patient denies any headache denies chest pain no shortness of breath no dyspnea on exertion patient denies orthopnea denies PND. Has done well. Patient was currently placed on labetalol with as needed hydralazine and amlodipine and actually has gotten fairly good response from above medications. Current blood pressure 138/70. Patient explained the risk of preeclampsia. No evidence of this at this particular time on physical or laboratory values. Patient denies headache denies fever chills no sick contacts. Patient continues to have optimal control with current medical management. Objective - Constitutional Vitals: Vital Signs - 12hr 09/17/20 09/17/20 09/17/20 08:18 09:31 09:33 Temperature 98.3 F Pulse Rate 79 79 79 Respiratory 20 Rate Blood Pressure 126/87 126/87 126/87 Blood Pressure [Left] O2 Sat by Pulse 96 Oximetry 09/17/20 09/17/20 12:02 15:34 Temperature 99.3 F 98.3 F Pulse Rate 82 70 Respiratory 20 20 Rate Blood Pressure 138/81 Blood Pressure 135/87 [Left] O2 Sat by Pulse 96 97 Oximetry General appearance: Present: no acute distress, well-nourished - EENT Eyes: PERRL, EOM intact ENT: hearing intact, clear oral mucosa Ears: bilateral: normal - Neck Neck: supple, normal ROM - Respiratory Respiratory effort: normal Respiratory: bilateral: CTA - Breasts Breasts: normal - Cardiovascular Rhythm: regular Heart Sounds: Present: S1 & S2. Absent: gallop, rub Extremities: pulses intact, No edema, normal color, Full ROM - Gastrointestinal General gastrointestinal: Present: soft, non-tender, non-distended, normal bowel sounds - Genitourinary Female genitourinary: normal - Integumentary Integumentary: clear, warm, dry - Musculoskeletal Musculoskeletal: 1, strength equal bilaterally - Neurologic Neurologic: moves all extremities - Psychiatric Psychiatric: memory intact, appropriate mood/affect, intact judgment & insight - Labs CBC & Chem 7: 09/17/20 06:41 09/15/20 18:27 Labs: Abnormal lab results 09/17/20 Range/Units 06:41 WBC 12.7 H (4.5-11.0) K/mm3 RBC 3.51 L (3.65-5.03) M/mm3 MCHC 35 H (30-34) % [place] # (Auto) 0.9 H (0.0-0.8) K/mm3 Seg Neutrophils # 7.8 H (1.8-7.7) K/mm3
[2020-09-18] MEDS: oxyCODONE /ACETAMINOPHEN 5-325MG TAB PO PRN ×3 (05:01→18:12)
[2020-09-18] MEDS ORDERED: DIPHtheria,PERTUSSIS(ACELL),TETANUS VACCINE/PF 0.5 ML VIAL IM ONE (07:30)
[2020-09-18] MEDS: PRENATAL VIT27-FE FUMARATE-FOLIC ACID VIT TAB PO SCH (10:40)
[2020-09-18] MEDS: FERROUS SULFATE 325 MG TAB PO SCH (10:40)
[2020-09-18] MEDS: AMOXICILLIN/K CLAV 875/125MG TAB PO SCH (10:40)
[2020-09-18] MEDS: amLODIPine 5 MG TAB PO SCH (10:41)
--- NOTE | 2020-09-18 12:32 | Event Note ---
Date: 09/18/20 Blood pressure is controlled and will sign off. Please call us if any questions.
--- NOTE | 2020-09-18 14:49 | Discharge Summary ---
Providers - Providers Date of Admission: 09/14/20 12:24 Date of discharge: 09/18/20 Attending physician: LUCINA CAMPOVERDE JR, MD 09/16/20 09:47 Consult to Physician [CONS] Urgent Comment: Consulting Provider: CHIQUITA KELLER Physician Instructions: Reason For Exam: uncontrolled hypertension; pod 1 S/P primary C/S Primary care physician: LUCINA CAMPOVERDE JR, MD Hospitalization Reason for admission: induction of labor Delivery: Procedure: primary low transverse Episiotomy: none Laceration: none Incision: dry, intact (steri stips intact, no drainage or bleeding noted) Other procedures: none complications: none [place] baby: twins (One at bedside, one in NICU) Hospital course: See admission H & P; OB operative note and PP progress notes Condition at discharge: Stable Disposition: DC-01 TO HOME OR SELFCARE - Discharge Diagnoses (1) Status post primary low transverse section Status: Acute (2) Twin , delivered by section, current hospitalization Status: Acute (3) Elevated blood pressure reading Status: Acute Plan - Discharge Medications Prescriptions: amLODIPine 5 mg PO QDAY 14 Days #14 tablet labetaloL [Labetalol 100mg TAB] 300 mg PO BID 14 Days #28 tablet Ibuprofen [Motrin 800 MG tab] 800 mg PO Q8HR PRN 14 Days #42 tablet PRN Reason: Pain, Mild (1-3) oxyCODONE /ACETAMINOPHEN [Percocet 5/325 mg] 1 tab PO Q6H PRN #30 tablet PRN Reason: Pain, Moderate (4-6) - Provider Discharge Summary Activity: routine, no sex for 6 weeks, no heavy lifting 4 weeks, no strenuous exercise Diet: other (Iron rich diet) Instructions: routine Additional instructions: [] Smoking cessation referral if applicable(refer to patient education folder for contact #) [] Refer to [facility] Booklet Call your doctor immediately for: * Fever > 100.5 * Heavy vaginal bleeding ( >1 pad per hour) * Severe persistent headache * Shortness of breath * Reddened, hot, painful area to leg or breast * Drainage or odor from incision. * Keep incision clean and dry at all times and follow doctor's instructions regarding bathing/showering * Follow up at office in 7 days for B/P check * Return to hospital immediately for severe headache or visual changes - Follow up plan Follow up: LUCINA CAMPOVERDE JR, MD [Primary Care Provider] - 7 Days
[2020-09-18] MEDS: IBUPROFEN 800 MG TAB PO PRN (16:24)
[2020-09-18 17:42] VITALS: BP 145/82
== END 2020-09-18 18:50 | disposition home or self-care (01) | DRG 765 ==
LOC: TRG 11:07 → LD 11:08 → TRG 12:24 → LD 12:24 → OB 09-16 16:48
PROVIDERS: ADMIT Obstetrics & Gynecology; ATTEND Obstetrics & Gynecology
PROC: 10D00Z1 Extraction of Products of Conception, Low, Open Approach (ICD-10-PCS; principal; 2020-09-15)
DX: O76 Abnormality in fetal heart rate and rhythm complicating labor and delivery (principal); O30.043 Twin pregnancy, dichorionic/diamniotic, third trimester; O14.14 Severe pre-eclampsia complicating childbirth; Z37.2 Twins, both liveborn; Z3A.36 36 weeks gestation of pregnancy
CPT/HCPCS: 36415; 59200; 80053; 81001; 83615; 83735; 84550; 85014; 85018; 85025; 85027; 86850; 86900; 86901; 87086; 88307; 90471; 90715; G0378; J0360; J0595; J0690; J1100; J2270; J2405; J2765; J3475; J3490; J7120; U0003

== ENCOUNTER 2021-09-03 12:36 | Emergency (ER) | payer OTHER ==
[2021-09-03 13:18] LABS: Bilirubin,Urine NEG (Negative); Blood,Urine NEG (Negative); Color,Urine Yellow (Yellow); Mucus,Urine 1+ /HPF; Urobilinogen,Urine < 2.0 mg/dL (<2.0)
--- NOTE | 2021-09-03 13:20 | Emergency Department Report ---
HPI - General Chief Complaint: Medical Clearance Time Seen by Provider: 09/03/21 12:49 - HPI HPI: 26-year-old -[place] female presents to the emergency department, sent over by her [facility] at [facility] to rule out preeclampsia. The jeromy ent was being evaluated in their office today after giving via on 08/24 and she was found to have a blood pressure of 167/114. The patient admits to some ankle swelling since the surgery/delivery. She denies any fever, chest pain, shortness of breath, headache, vision change. She has a past medical history of asthma. The patient was not given any antihypertensive medication at [facility] and presents throughout triage with a blood pressure of 110/66. ED Past Medical Hx - Past Medical History Previous Medical History?: Yes Hx Hypertension: Yes (PREVIOUS PREGANANCY) Hx Heart Attack/AMI: No Hx Diabetes: No Hx Deep Vein Thrombosis: No Hx Renal Disease: No Hx Sickle Cell Disease: No Hx Seizures: No Hx Asthma: Yes Hx HIV: No - Surgical History Additional Surgical History: tonsillectomy and partial thyroidectomy - Social History Smoking Status: Never Smoker - Medications Home Medications: Home Medications Medication Instructions Recorded Confirmed Last Taken Type Vitamin 1 tab PO DAILY 09/14/20 09/03/21 09/14/20 History oxyCODONE /ACETAMINOPHEN [Percocet 1 tab PO Q6H PRN #30 tablet 09/15/20 09/03/21 Unknown Rx 5/325 mg] Ibuprofen [Motrin 800 MG tab] 800 mg PO Q8HR PRN 14 Days #42 09/18/20 09/03/21 Unknown Rx tablet amLODIPine 5 mg PO QDAY 14 Days #14 tablet 09/18/20 09/03/21 Unknown Rx labetaloL [Labetalol 100mg TAB] 300 mg PO BID 14 Days #28 tablet 09/18/20 09/03/21 Unknown Rx Docusate Sodium [Colace] 100 mg PO BID #60 capsule 08/24/21 09/03/21 Unknown Rx Ferrous Sulfate [Feosol 325 MG tab] 325 mg PO QDAY #30 tablet 08/24/21 09/03/21 Unknown Rx Ibuprofen [Motrin 800 MG tab] 800 mg PO Q8HR #30 tablet 08/24/21 09/03/21 Unknown Rx Lidocain2.5%/Prilocai2.5% [Emla] 1 applic TP ONCE #1 tube 08/24/21 09/03/21 Unknown Rx Vit-Fe Fumar-FA [ 1 tab PO QDAY #30 tablet 08/24/21 09/03/21 Unknown Rx Vitamin] oxyCODONE /ACETAMINOPHEN [Percocet 1 tab PO Q6HR PRN #20 tablet 08/24/2109/03 Unknown Rx 5/325] ED Review of Systems ROS: Stated complaint: HIGH BLOOD PRESSURE PRE-ECLAMPSIA Other details as noted in HPI Comment: All other systems reviewed and negative Constitutional: denies: chills, fever Eyes: denies: eye pain, vision change ENT: denies: ear pain, throat pain Respiratory: denies: cough, shortness of breath Cardiovascular: denies: chest pain, palpitations Gastrointestinal: denies: abdominal pain, vomiting Genitourinary: denies: dysuria, discharge Musculoskeletal: denies: back pain, arthralgia Skin: denies: rash, lesions Neurological: denies: headache, weakness Physical Exam - Physical Exam Vital Signs: Vital Signs 09/03/21 12:46 Temperature 98.5 F Pulse Rate 60 Respiratory 66 H Rate Blood Pressure 110/66 [Right] O2 Sat by Pulse 97 Oximetry Physical Exam: GENERAL: The patient is well-developed well-nourished. HENT: Normocephalic. Atraumatic. Patient has moist mucous membranes. EYES: Extraocular motions are intact. NECK: Supple. Trachea is midline. CHEST/LUNGS: Clear to auscultation. There is no respiratory distress noted. HEART/CARDIOVASCULAR: Regular. There is no tachycardia. There is no murmur. ABDOMEN: Abdomen is soft, nontender. Patient has normal bowel sounds. SKIN: Skin is warm and dry. NEURO: The patient is awake, alert, and oriented. The patient is cooperative. The patient has no focal neurologic deficits. Normal speech. Cranial nerves II through XII grossly intact. MUSCULOSKELETAL: There is no tenderness or deformity. There is no limitation range of motion. ED Course Vital Signs 09/03/21 12:46 Temperature 98.5 F Pulse Rate 60 Respiratory 66 H Rate Blood Pressure 110/66 [Right] O2 Sat by Pulse 97 Oximetry - Consultations Consultation #1: 09/03/21 14:[address] Velasquez at [facility] and she listened to the presentation and vital signs and lab results. The patient can be safely discharged home to follow-up outpatient with them. ED Medical Decision Making - Lab Data Result diagrams: 09/03/21 13:27 09/03/21 13:27 Lab Results 09/03/21 09/03/21 09/03/21 Range/Units 13:27 13:27 Unknown WBC 7.9 (4.5-11.0) K/mm3 RBC 3.91 (3.65-5.03) M/mm3 Hgb 10.6 (10.1-14.3) gm/dl Hct 33.7 (30.3-42.9) % MCV 86 (79-97) fl MCH 27 L (28-32) pg MCHC 31 (30-34) % RDW 16.9 H (13.2-15.2) % Plt Count 420 (140-440) K/mm3 Lymph % (Auto) 42.6 H (13.4-35.0) % [place] % (Auto) 5.3 (0.0-7.3) % Eos % (Auto) 2.5 (0.0-4.3) % Baso % (Auto) 0.2 (0.0-1.8) % Lymph # (Auto) 3.4 (1.2-5.4) K/mm3 [place] # (Auto) 0.4 (0.0-0.8) K/mm3 Eos # (Auto) 0.2 (0.0-0.4) K/mm3 Baso # (Auto) 0.0 (0.0-0.1) K/mm3 Seg Neutrophils % 49.4 (40.0-70.0) % Seg Neutrophils # 3.9 (1.8-7.7) K/mm3 Sodium 140 (137-145) mmol/L Potassium 4.4 (3.6-5.0) mmol/L Chloride 103.4 (98-107) mmol/L Carbon Dioxide 25 (22-30) mmol/L Anion Gap 16 mmol/L BUN 9 (7-17) mg/dL Creatinine 0.5 L (0.6-1.2) mg/dL Estimated GFR > 60 ml/min BUN/Creatinine Ratio 18 % Glucose 89 (65-100) mg/dL Calcium 9.0 (8.4-10.2) mg/dL Total Bilirubin 0.20 (0.1-1.2) mg/dL AST 16 (5-40) units/L ALT 14 (7-56) units/L Alkaline Phosphatase 142 H (35-129) units/L Total Protein 6.7 (6.3-8.2) g/dL Albumin 3.7 L (3.9-5) g/dL Albumin/Globulin Ratio 1.2 % Urine Color Yellow (Yellow) Urine Turbidity Clear (Clear) Urine pH 5.0 (5.0-7.0) Ur Specific [place] 1.017 (1.003-1.030) Urine Protein 30 mg/dl (Negative) mg/dL Urine Glucose (UA) Neg (Negative) mg/dL Urine Ketones Neg (Negative) mg/dL Urine Blood Neg (Negative) Urine Nitrite Neg (Negative) Urine Bilirubin Neg (Negative) Urine Urobilinogen < 2.0 (<2.0) mg/dL Ur Leukocyte Esterase Mod (Negative) Urine WBC (Auto) 6.0 (0.0-6.0) /HPF Urine RBC (Auto) 2.0 (0.0-6.0) /HPF U Epithel Cells (Auto) 3.0 (0-13.0) /HPF Urine Mucus 1+ /HPF - Medical Decision Making This patient was sent in to rule out preeclampsia after she was found to have elevated blood pressure upon routine follow-up appointment with [facility]. She did appear to have an elevated blood pressure at that time with a systolic of 167. However the patient's blood pressure has been within normal limits throughout her ED course. Labs have been unremarkable including CBC, metabolic panel and urinalysis. The patient does not show any proteinuria, elevated liver enzymes, or any other acute process. I spoke with Dr. Velasquez at [facility] and the patient can be safely discharged home with outpatient follow-up in their office. Critical Care Time: No Critical care attestation.: If time is entered above; I have spent that time in minutes in the direct care of this critically ill patient, excluding procedure time. ED Disposition Clinical Impression: Elevated blood pressure reading Disposition: HOME / SELF CARE / HOMELESS Is pt being admited?: No Condition: Stable Additional Instructions: Please follow-up with [facility]. Keep a blood pressure log. Return to the emergency department with any worsening of your symptoms, new or concerning symptoms not addressed during this current emergency department visit, or with any acute distress. Referrals: [facility] [Provider Group] - 3-5 Days Time of Disposition: 14:57
[2021-09-03 13:42] LABS: Basophils % (Auto) 0.2 % (0.0-1.8); Eosinophils # (Auto) 0.2 K/mm3 (0.0-0.4); Eosinophils % (Auto) 2.5 % (0.0-4.3); Hematocrit 33.7 % (30.3-42.9); Hemoglobin 10.6 gm/dl (10.1-14.3); Lymphocytes # (Auto) 3.4 K/mm3 (1.2-5.4); Lymphocytes % (Auto) 42.6 % (13.4-35.0); Mean Corpuscular HGB Conc 31 % (30-34); Mean Corpuscular Volume 86 fl (79-97); Monocytes # (Auto) 0.4 K/mm3 (0.0-0.8); Monocytes % (Auto) 5.3 % (0.0-7.3); Platelet Count 420 K/mm3 (140-440); Red Blood Count 3.91 M/mm3 (3.65-5.03); Red Cell Distribution Width 16.9 % (13.2-15.2)
[2021-09-03 13:52] VITALS: BP 126/58
[2021-09-03 14:23] LABS: Alanine Aminotransferase 14 units/L (7-56); Albumin 3.7 g/dL (3.9-5); Blood Urea Nitrogen 9 mg/dL (7-17); Hemolysis Index 4
[2021-09-03 14:35] LABS: BUN/Creatinine Ratio 18
== END 2021-09-03 15:14 | disposition home or self-care (01) ==
LOC: ED 12:36
DX: O16.5 Unspecified maternal hypertension, complicating the puerperium (principal); R03.0 Elevated blood-pressure reading, without diagnosis of hypertension
CPT/HCPCS: 36415; 80053; 81001; 85025; 99283

== ENCOUNTER 2021-10-13 16:08 | Emergency (ER) | payer OTHER ==
[2021-10-13] MEDS ORDERED: ACETAMINOPHEN 500 MG TAB PO ONE (16:27)
[2021-10-13 16:28] VITALS: BP 124/74
--- NOTE | 2021-10-13 17:02 | XRay Report ---
CHEST 2 VIEWS, 10/13/2021 INDICATION: Cough COMPARISON: None FINDINGS: Support devices: None. Heart: The cardiac silhouette is normal in size. Lungs/pleura: The lungs are clear of focal airspace disease or significant pleural effusion. Additional findings: No significant acute abnormality. IMPRESSION: 1. No evidence of acute cardiopulmonary process. Signer Name: Yolande Phoenix MD Signed: 10/13/2021 4:58 PM Workstation Name: [id number]
--- NOTE | 2021-10-13 17:18 | Emergency Department Report ---
- General Chief Complaint: Upper Respiratory Infection Stated Complaint: FLU LIKE SYMPTOMS Time Seen by Provider: 10/13/21 16:24 Source: patient Mode of arrival: Ambulatory Limitations: No Limitations - History of Present Illness Initial Comments: This is a 26-year-old female nontoxic, well nourished in appearance, no acute signs of distress presents to the ED with c/o of productive cough, body aches, rhinorrhea, nasal congestion x 1 day. Patient describes productive cough as yellow mucus production. Patient denies any sick contact. Patient denies being COVID vaccinated. Patient denies any recent travels, long car, recent hospital stays. Patient denies any calf pain or calf tenderness. Patient denies any chest pain, short of breath, fever, chills, nausea, vomiting, hemoptysis, numbness, tingling, headache or stiff neck. Patient denies any allergies or significant past medical history. MD Complaint: cough, rhinorrhea, nasal congestion -: days(s) Severity: mild Severity scale (0 -10): 3 Quality: aching Consistency: constant Improves With: nothing Worsens With: nothing Associated Symptoms: rhinorrhea, nasal congestion, cough. denies: fever, chills, myalgias, diaphoresis, headache, sore throat, stiff neck, chest pain, shortness of breath, abdominal pain, nausea, vomiting, diarrhea, dysuria, rash, confusion, right sweats, weight loss, epistaxis, hoarseness, ear pain Treatments Prior to Arrival: none - Related Data Home Medications Medication Instructions Recorded Confirmed Last Taken Vitamin 1 tab PO DAILY 09/14/20 09/03/21 09/14/20 Previous Rx's Medication Instructions Recorded Last Taken Type oxyCODONE /ACETAMINOPHEN [Percocet 1 tab PO Q6H PRN #30 tablet 09/15/20 Unknown Rx 5/325 mg] Ibuprofen [Motrin 800 MG tab] 800 mg PO Q8HR PRN 14 Days #42 09/18/20 Unknown Rx tablet amLODIPine 5 mg PO QDAY 14 Days #14 tablet 09/18/20 Unknown Rx labetaloL [Labetalol 100mg TAB] 300 mg PO BID 14 Days #28 tablet 09/18/20 Unknown Rx Docusate Sodium [Colace] 100 mg PO BID #60 capsule 08/24/21 Unknown Rx Ferrous Sulfate [Feosol 325 MG tab] 325 mg PO QDAY #30 tablet 08/24/21 Unknown Rx Ibuprofen [Motrin 800 MG tab] 800 mg PO Q8HR #30 tablet 08/24/21 Unknown Rx Lidocain2.5%/Prilocai2.5% [Emla] 1 applic TP ONCE #1 tube 08/24/21 Unknown Rx Vit-Fe Fumar-FA [ 1 tab PO QDAY #30 tablet 08/24/21 Unknown Rx Vitamin] oxyCODONE /ACETAMINOPHEN [Percocet 1 tab PO Q6HR PRN #20 tablet 08/24/21 Unknown Rx 5/325] Benzonatate [Tessalon Perles] 100 mg PO Q8HR PRN #12 cap 10/13/21 Unknown Rx Allergies Allergy/AdvReac Type Severity Reaction Status Date / Time No Known Allergies Allergy Verified 09/03/21 13:30 ED Review of Systems ROS: Stated complaint: FLU LIKE SYMPTOMS Other details as noted in HPI Comment: All other systems reviewed and negative Constitutional: denies: chills, fever Eyes: denies: eye pain, eye discharge, vision change ENT: congestion. denies: ear pain, throat pain Respiratory: cough. denies: shortness of breath, wheezing Cardiovascular: denies: chest pain, palpitations Endocrine: no symptoms reported Gastrointestinal: denies: abdominal pain, nausea, diarrhea Genitourinary: denies: urgency, dysuria, discharge Musculoskeletal: denies: back pain, joint swelling, arthralgia Skin: denies: rash, lesions Neurological: denies: headache, weakness, paresthesias Psychiatric: denies: anxiety, depression Hematological/Lymphatic: denies: easy bleeding, easy bruising ED Past Medical Hx - Past Medical History Hx Hypertension: Yes (PREVIOUS PREGANANCY) Hx Heart Attack/AMI: No Hx Diabetes: No Hx Deep Vein Thrombosis: No Hx Renal Disease: No Hx Sickle Cell Disease: No Hx Seizures: No Hx Asthma: Yes Hx HIV: No - Surgical History Additional Surgical History: tonsillectomy and partial thyroidectomy - Social History Smoking Status: Never Smoker - Medications Home Medications: Home Medications Medication Instructions Recorded Confirmed Last Taken Type Vitamin 1 tab PO DAILY 09/14/20 09/03/21 09/14/20 History oxyCODONE /ACETAMINOPHEN [Percocet 1 tab PO Q6H PRN #30 tablet 09/15/20 09/03/21 Unknown Rx 5/325 mg] Ibuprofen [Motrin 800 MG tab] 800 mg PO Q8HR PRN 14 Days #42 09/18/20 09/03/21 Unknown Rx tablet amLODIPine 5 mg PO QDAY 14 Days #14 tablet 09/18/20 09/03/21 Unknown Rx labetaloL [Labetalol 100mg TAB] 300 mg PO BID 14 Days #28 tablet 09/18/20 09/03/21 Unknown Rx Docusate Sodium [Colace] 100 mg PO BID #60 capsule 08/24/21 09/03/21 Unknown Rx Ferrous Sulfate [Feosol 325 MG tab] 325 mg PO QDAY #30 tablet 08/24/21 09/03/21 Unknown Rx Ibuprofen [Motrin 800 MG tab] 800 mg PO Q8HR #30 tablet 08/24/21 09/03/21 Unknown Rx Lidocain2.5%/Prilocai2.5% [Emla] 1 applic TP ONCE #1 tube 08/24/21 09/03/21 Unknown Rx Vit-Fe Fumar-FA [ 1 tab PO QDAY #30 tablet 08/24/21 09/03/21 Unknown Rx Vitamin] oxyCODONE /ACETAMINOPHEN [Percocet 1 tab PO Q6HR PRN #20 tablet 08/24/21 09/03/21 Unknown Rx 5/325] Benzonatate [Tessalon Perles] 100 mg PO Q8HR PRN #12 cap 10/13/21 Unknown Rx ED Physical Exam - General Limitations: No Limitations General appearance: alert, in no apparent distress - Head Head exam: Present: atraumatic, normocephalic - Eye Eye exam: Present: normal appearance - Neck Neck exam: Present: normal inspection, full ROM. Absent: lymphadenopathy - Respiratory Respiratory exam: Present: normal lung sounds bilaterally. Absent: respiratory distress, wheezes, rales, rhonchi, stridor, chest wall tenderness, accessory muscle use, decreased breath sounds, prolonged expiratory - Cardiovascular Cardiovascular Exam: Present: regular rate, normal rhythm, normal heart sounds. Absent: bradycardia, tachycardia, irregular rhythm, systolic murmur, diastolic murmur, rubs, gallop - Extremities Exam Extremities exam: Present: full ROM - Back Exam Back exam: Present: full ROM - Neurological Exam Neurological exam: Present: alert, oriented X3, normal gait - Psychiatric Psychiatric exam: Present: normal affect, normal mood - Skin Skin exam: Present: warm, dry, intact, normal color. Absent: rash ED Course Vital Signs 10/13/21 16:22 Temperature 99.3 F Pulse Rate 94 H Respiratory 20 Rate Blood Pressure 124/74 O2 Sat by Pulse 99 Oximetry - Reevaluation(s) Reevaluation #1: 10/13/21 17:16 Patient is speaking in full sentences with no signs of distress noted. ED Medical Decision Making - Radiology Data [facility] [address] [place] [address] XRay Report Signed Patient: KVNG CORDOVA MR# : [id number] : 1995 Acct:[id number] Age/Sex: 26 / F ADM Date: 10/13/21 Loc: ED Attending Dr: Ordering Physician: CATRACHITA COLEMAN NP Date of Service: 10/13/21 Procedure(s): XR chest routine 2V Accession Number(s): [id number] cc: CATRACHITA COLEMAN NP Fluoro Time In Minutes: CHEST 2 VIEWS, 10/13/2021 INDICATION: Cough COMPARISON: None FINDINGS: Support devices: None. Heart: The cardiac silhouette is normal in size. Lungs/pleura: The lungs are clear of focal airspace disease or significant pleural effusion. Additional findings: No significant acute abnormality. IMPRESSION: 1. No evidence of acute cardiopulmonary process. Signer Name: Yolande Phoenix MD Signed: 10/13/2021 4:58 PM Workstation Name: [id number] Transcribed By: EB Dictated By: Yolande Phoenix MD Electronically Authenticated By: Yolande Phoenix MD Signed Date/Time: 10/13/211657 DD/ 56 TD/TT: - Medical Decision Making This is a 26-year-old female that presents with viral upper respiratory. Patient is stable and was examined by me. Chest x-ray has been obtained and dictated by radiologist with normal exam. Patient is notified of x-ray results with no questions noted. Patient does meet clinical concerns of COVID-19 and patient was instructed and educated on signs and symptoms and to self quarantine and seek medical attention as soon as possible if symptoms worsen and continue. Patient was instructed to increase hydration, rest and take Tylenol for fever episodes. Patient received Tylenol in the ED. Vitals stable. Patient is nonfebrile and normal heart rate. Patient was instructed Follow-up with a primary care doctor in 3-5 days or if symptoms worsen and continue return to emergency room as soon as possible. At time time of discharge, the patient does not seem toxic or ill in appearance. No acute signs of distress noted. Patient agrees to discharge treatment plan of care. No further questions noted by the patient.nt. Critical care attestation.: If time is entered above; I have spent that time in minutes in the direct care of this critically ill patient, excluding procedure time. ED Disposition Clinical Impression: Viral upper respiratory illness Disposition: HOME / SELF CARE / HOMELESS Is pt being admited?: No Does the pt Need Aspirin: No Condition: Stable Instructions: Viral Respiratory Infection Additional Instructions: Follow-up with a primary care doctor in 3-5 days or if symptoms worsen and continue return to emergency room as soon as possible. Your symptoms appear most consistent with a nonspecific viral syndrome. However, given this current pandemic, COVID-19 is in the differential of possibilities. Despite your previous negative COVID-19 test, I do recommend repeat outpatient Covid 19 testing. In the meantime, isolate/quarantine yourself and stay away from anyone who is elderly, immunocompromised or chronically ill. Please see your nearest health department or primary care doctor that you are referred to for COVID testing. Increased rest, hydration, and take [id number] Tylenol as directed from instructions label for pain/fever episode. Prescriptions: Benzonatate [Tessalon Perles] 100 mg PO Q8HR PRN #12 cap PRN Reason: Cough Referrals: LISA TORIBIO MD [Primary Care Provider] - 3-5 Days BRIANA LEIVA MD [Staff Physician] - 3-5 Days Time of Disposition: 17:18
== END 2021-10-13 17:32 | disposition home or self-care (01) ==
LOC: ED 16:08
DX: J06.9 Acute upper respiratory infection, unspecified (principal); E89.0 Postprocedural hypothyroidism; Z98.890 Other specified postprocedural states; Z79.899 Other long term (current) drug therapy
CPT/HCPCS: 71046; 99283